=== PATIENT | female | born 1995 | race Caucasian/White ===

== ENCOUNTER 2020-04-23 17:30 | Outpatient (CLI) | payer BC | END 2020-04-23 17:31 | disposition home or self-care (01) | LOC: SLEEPLAB 17:30 | PROVIDERS: ATTEND Physician Assistant | DX: G47.33 Obstructive sleep apnea (adult) (pediatric) (principal); G47.9 Sleep disorder, unspecified; R53.83 Other fatigue; R06.83 Snoring; G47.00 Insomnia, unspecified; F41.8 Other specified anxiety disorders | CPT/HCPCS: 95806 ==

== ENCOUNTER 2020-06-02 09:52 | Outpatient (CLI) | payer BC ==
[~2020-06-02 09:52] MED LIST: Magnevist 469MG/ML 20 ML VIAL ONE
[2020-06-02] MEDS ORDERED: Sodium Chloride 0.9% 20 ML ONE (10:56)
--- NOTE | 2020-06-02 14:29 | MRI ---
MR ENTEROGRAPHY (MRI ABDOMEN WITH AND WITHOUT IV CONTRAST): 06/02/20 HISTORY: 25-year=old female with lower abdominal pain. FINDINGS: The liver, spleen, pancreas, adrenal glands, kidneys and gallbladder appear normal. No free fluid or lymphadenopathy is seen. The small bowel loops demonstrate no evidence of abnormal loop dilatation, wall thickening or abnorma l mural enhancement. No stricture is seen. No abnormally loculated fluid collection is identified to suggest abscess formation The bone marrow signal is normal. The uterus and ovaries are present. perianal soft tissues are irais l. The aorta is of normal caliber. IMPRESSION: Normal exam. POS: [facility]
== END 2020-06-02 09:53 | disposition home or self-care (01) ==
LOC: MRI 09:52
PROVIDERS: ATTEND Internal Medicine
DX: R10.30 Lower abdominal pain, unspecified (principal)
CPT/HCPCS: 74183; A9579; J1610